=== PATIENT | female | born 1965 | race Caucasian/White ===

== ENCOUNTER 2017-09-18 05:40 | Day surgery (SDC) | payer OTHER ==
[~2017-09-18] VITALS: Ht 162.6 cm; Wt 95.3 kg
[2017-09-18] MEDS ORDERED: ONDANSETRON HCL 4 MG/2 ML VIAL IVP PRN ×2 (08:00→08:15)
[2017-09-18] MEDS ORDERED: fentaNYL CITRATE/PF 100 MCG/2 ML AMP IVP PRN ×2 (08:00)
[2017-09-18] MEDS ORDERED: PROMETHAZINE HCL 25 MG/ML AMP IM PRN (08:15)
[2017-09-18] MEDS ORDERED: PROPOFOL 200MG/ 20ML VIAL (DIPRIVAN) IV ONE (08:25)
[2017-09-18] MEDS ORDERED: NS IRRIG SOLN 5000 ML IR ONE (08:25)
[2017-09-18] MEDS ORDERED: SEVOFLURANE 15 MIN GAS INH ONE (08:25)
[2017-09-18] MEDS ORDERED: KETOROLAC TROMETHAMINE 30 MG VIAL ONE (08:25)
[2017-09-18] MEDS ORDERED: fentaNYL CITRATE/PF 100 MCG/2 ML AMP ONE ×2 (08:25→08:50)
[2017-09-18] MEDS ORDERED: ONDANSETRON HCL 4 MG/2 ML VIAL ONE (08:25)
[2017-09-18] MEDS ORDERED: MIDAZOLAM HCL 5 MG/ML VIAL (VERSED) IV ONE (08:25)
[2017-09-18] MEDS ORDERED: DEXAMETHASONE SOD PHOSPHATE 4 MG/ML VIAL ONE (08:25)
[2017-09-18 09:12] VITALS: BP_SYST 135
[2017-09-18] MEDS ORDERED: OXYCODONE/ACETAMINOPHEN 5-325 TABLET PO PRN (11:11)
== END 2017-09-18 10:05 | disposition home or self-care (01) ==
LOC: SDS 05:40 → SMU 05:40 → SDS 10:05
PROVIDERS: ATTEND Obstetrics & Gynecology
DX: N84.0 Polyp of corpus uteri (principal); I10 Essential (primary) hypertension; F32.9 Major depressive disorder, single episode, unspecified; F41.9 Anxiety disorder, unspecified; J45.909 Unspecified asthma, uncomplicated; Z98.890 Other specified postprocedural states; Z79.899 Other long term (current) drug therapy; Z88.2 Allergy status to sulfonamides; Z88.8 Allergy status to other drugs, medicaments and biological substances; Z80.1 Family history of malignant neoplasm of trachea, bronchus and lung; Z80.41 Family history of malignant neoplasm of ovary; Z80.52 Family history of malignant neoplasm of bladder
CPT/HCPCS: 36415; 58561; 86886; 86900; 86901; 88305; C1819; J1100; J1885; J2250; J2405; J2704; J3010; J7120